=== PATIENT | male | born 1985 | race Caucasian/White ===

== ENCOUNTER → 2021-11-06 10:54 | Outpatient (CLI) | payer OTHER, SELFPAY ==
--- NOTE | 2021-11-06 | DI.MRI.S_ITS ---
PROCEDURE: MR SHOULDER LT WO CON INDICATIONS: Pain in left shoulder TECHNIQUE: Noncontrast oblique coronal T2 fast spin echo with fat saturation, oblique sagittal T1 spin echo and T2 fast spin echo with fat saturation, axial T1 spin echo and T2 fast spin echo with fat saturation through the shoulder. COMPARISON: None. FINDINGS: Image quality: Excellent. Rotator cuff: Mild supraspinatus tendinopathy. The infraspinatus and subscapularis tendons appear intact throughout. Sagittal images demonstrate no muscle atrophy. Bones and bursae: No bone marrow contusions or fractures. Mild acromioclavicular joint degeneration. No os acromiale. Trace subacromial-subdeltoid bursal fluid is present. Capsule and soft tissues: Thin linear T2 hyperintense signal in the anterior, inferior labrum, concerning for tear. The long head of the biceps tendon demonstrates normal location and morphology. The rotator interval appears normal, without fibrosis. The coracohumeral ligament is normal in thickness. IMPRESSION: 1. Mild supraspinatus tendinopathy. 2. Thin linear fluid signal in the anterior, inferior labrum, concerning for tear. 3. Trace subacromial bursitis. Dictated by: Lobo Crouch M.D. on 11/06/2021 at 12:26 Approved by: Lobo Crouch M.D. on 11/06/2021 at 12:32
== END ==
PROVIDERS: Referring Provider Student in an Organized Health Care Education/Training Program; Visit Provider Student in an Organized Health Care Education/Training Program
DX: M25.512 Pain in left shoulder (principal); M19.012 Primary osteoarthritis, left shoulder
CPT/HCPCS: 73221